=== PATIENT | male | born 2000 | race Caucasian/White ===

== ENCOUNTER 2021-06-19 10:29 | Emergency (ER) | payer BC ==
[2021-06-19] MEDS ORDERED: KEPPRA250 MG (10:47)
[2021-06-19 10:54] LABS: BASO # 0.01 (0.02-0.10); EOS # 0.01 (0.04-0.40); EOS % 0.1 % (0.0-4.0); HEMATOCRIT 44.8 % (42.0-52.0); HEMOGLOBIN 15.5 g/dL (13.5-18.0); LYMPH# 1.34 (1.50-4.00); MEAN CELL VOLUME 83 fl (78-100); MEAN CORPUSCULAR HEMOGLOBIN 29 pg (27-31); MEAN CORPUSCULAR HGB CONC 35 g/dL (33-37); MEAN PLATELET VOLUME 10.2 fl (7.4-10.4); MONO # 0.53 (0.20-0.80); NEU # 5.68 (1.40-6.50); PLATELET COUNT 228 K/mm3 (130-400); RED CELL DISTRIBUTION WIDTH 11.9 % (11.5-14.5); WHITE BLOOD COUNT 7.6 K/mm3 (4.8-10.8)
[2021-06-19 11:11] LABS: ALBUMIN 4.6 g/dL (3.5-5.0); POTASSIUM 3.6 mmol/L (3.5-5.1); SODIUM 138 mmol/L (136-145)
[2021-06-19 11:12] LABS: CALCIUM 9.9 mg/dL (8.3-10.5)
[2021-06-19 11:13] LABS: GLUCOSE 116 mg/dL (75-110)
[2021-06-19 11:14] LABS: TOTAL PROTEIN 7.9 g/dL (6.4-8.3)
[2021-06-19 11:15] LABS: CARBON DIOXIDE 20 mmol/L (22-29); TOTAL BILIRUBIN 0.8 mg/dL (0.2-1.2)
[2021-06-19 11:19] LABS: AST-SGOT 51 U/L (5-34)
[2021-06-19 11:20] LABS: ALT/SGPT 100 U/L (0-55); MAGNESIUM 1.99 mg/dL (1.60-2.60)
[2021-06-19 11:22] LABS: ALCOHOL IN-HOUSE < 10 mg/dL (<10)
[2021-06-19 14:13] LABS: URINE APPEARANCE HAZY; URINE COLOR DARK YELLOW
[2021-06-19 14:14] LABS: PH-URINE 5.5 (5.0 - 8.0); URINE BILIRUBIN NEGATIVE (NEGATIVE); URINE BLOOD TRACE (NEGATIVE); URINE GLUCOSE NEGATIVE (NEGATIVE); URINE KETONE TR (NEGATIVE); URINE LEUKOCYTE ESTERASE 1+ (NEGATIVE); URINE NITRATE NEGATIVE (NEGATIVE); URINE PROTEIN(semi-quant) TRACE mg/dL (NEGATIVE); URINE UROBILINOGEN NORMAL (NORMAL); URINE WBC 16-30 /hpf (0-3)
[2021-06-19] MEDS ORDERED: BACTRIM DS TAB1 EACH PO (16:57)
[2021-06-19 17:05] VITALS: BP 134/77
== END 2021-06-19 17:03 | disposition home or self-care (01) ==
LOC: ED 10:29
PROVIDERS: Physician Assistant
DX: N39.0 Urinary tract infection, site not specified (principal); F41.9 Anxiety disorder, unspecified; M79.18 Myalgia, other site; J45.909 Unspecified asthma, uncomplicated; R56.9 Unspecified convulsions; Z20.822 Contact with and (suspected) exposure to COVID-19; Z79.899 Other long term (current) drug therapy
CPT/HCPCS: J0696; J1885; J2060; J2360; J3010; J7030; Q9967